=== PATIENT | male | born 1950 ===

== ENCOUNTER 2022-12-07 05:40 | Day surgery (SDC) | payer OTHER ==
[~2022-12-07] VITALS: Ht 165.1 cm; Wt 83.9 kg
[~2022-12-07 05:40] MED LIST: COZAAR25 MG PO; NORVASC5 MG PO; PRAVASTATIN SOD10 MG PO
== END 2022-12-07 14:55 | disposition home or self-care (01) ==
LOC: CIR.AMB 05:40
PROVIDERS: ATTEND Colon & Rectal Surgery
DX: K64.4 Residual hemorrhoidal skin tags (principal); K64.8 Other hemorrhoids; K64.1 Second degree hemorrhoids; D12.9 Benign neoplasm of anus and anal canal; Z20.822 Contact with and (suspected) exposure to COVID-19; Z88.2 Allergy status to sulfonamides; Z88.1 Allergy status to other antibiotic agents